=== PATIENT | male | born 1960 | race Caucasian/White ===

== ENCOUNTER 2017-05-07 14:47 | Emergency (ER) | payer MEDICARE, MEDICAID ==
[~2017-05-07 14:47] MED LIST changes: -CYCL10TA29 PO; -HYDR-385 PO; -IBUP200C71 PO
--- NOTE | 2017-05-07 14:52 | ER Report ---
History and Physical Time Seen By MD: 14:52 HPI/ROS CHIEF COMPLAINT: Back pain HISTORY OF PRESENT ILLNESS: 56-year-old male patient presents to emergency room with complaint of back pain. Patient has significant past medical history for MS. Patient states that he was moving a 50 pound bag of pellets for his wood stove. He states that while his hearing that that he developed a sharp pain in the back. He states that that took him to his knees. He states that he was able to get up and sit down in the recliner. He states while he was there the pain seemed to persist and worsen. He denies having any loss of bowel or bladder control. He states that he is not taking any medication for this. He denies having any saddle paresthesia. He states the pain is right in the lower back and Zosyn radiate down the leg. REVIEW OF SYSTEMS: Respiratory: No cough, no dyspnea. Cardiovascular: No chest pain, no palpitations. Gastrointestinal: No vomiting, no abdominal pain. Musculoskeletal: As noted above Allergies: Coded Allergies: No Known Drug Allergies (Verified , 05/07/17) Home Meds Active Scripts Cyclobenzaprine Hcl (CYCLOBENZAPRINE HCL) 10 Mg Tablet, 5-10 MG PO TID Y for MUSCLE SPASMS, #30 TAB Prov:CRICKET RUTLEDGE 05/07/17 Hydrocodone Bit/Acetaminophen (HYDROCODON-ACETAMINOPHEN 5-325) 1 Each Tablet, 1 EACH PO Q4-6H Y for PAIN, #20 TAB Prov:CRICKET RUTLEDGE 05/07/17 Reported Medications Ibuprofen (IBUPROFEN) 200 Mg Capsule, 3 CAP PO QHS, CAPSULE 05/07/17 Ocrelizumab (Ocrevus) 300 Mg/10 Ml Vial, 300 MG IV 11/23/16 Discontinued Scripts Sulfamethoxazole/Trimet 800-160 Mg Tab (BACTRIM DS TABLET) 1 Each Tablet, 1 TAB PO Q12H for 7 Days, #14 TAB Prov:LOREE CAMACHO 11/23/16 Mupirocin Noam 2% Cream (MUPIROCIN 2% CREAM) 15 Gm Cream..g., 0 TP TID for 14 Days, #1 TUBE 1 Refill Prov:LOREE CAMACHO 11/23/16 Past Medical/Surgical History Patient has a past medical history of MS. Patient denies any surgical history. Reviewed Nurses Notes: Yes Hx Smoking: Yes Exposure to Second Hand Smoke?: No Hx Substance Use Disorder: No Hx Alcohol Use: No Constitutional Vital Sign - Last 24 Hours 05/07/17 05/07/17 05/07/17 05/07/17 14:50 14:54 15:00 15:02 Temp 98.2 Pulse 70 71 Resp 16 B/P (MAP) 147/79 147/79 (101) 117/87 (97) Pulse Ox 94 95 O2 Delivery Room Air 05/07/17 05/07/17 05/07/17 05/07/17 15:30 15:32 15:47 15:52 Pulse 65 67 66 B/P (MAP) 120/93 (102) Pulse Ox 96 97 97 05/07/17 05/07/17 16:00 16:32 Pulse 75 B/P (MAP) 120/91 (101) 120/70 (87) Pulse Ox 95 Physical Exam General Appearance: The patient is alert, has no immediate need for airway protection and no current signs of toxicity. Respiratory: Chest is non tender, lungs are clear to auscultation. Cardiac: regular rate and rhythm Gastrointestinal: Abdomen is soft and non tender, no masses, bowel sounds normal. Musculoskeletal: Neck: Neck is supple and non tender. Extremities have full range of motion and are non tender. Patient has good strength with flexion extension of the lower legs. Skin: No rashes or lesions. DIFFERENTIAL DIAGNOSIS: After history and physical exam differential diagnosis was considered for back pain including but not limited to muscular pain, herniated disc, spine fracture, intra-abdominal causes and urinary tract infection. Medical Decision Making EKG/Imaging Imaging Examination: L-SPINE W/O CONTRAST Comparison: None. History: back pain Procedure: Back pain. One of the following dose optimization techniques was utilized in the performance of this exam: Automated exposure control; adjustment of the mA and/ or kV according to the patient's size; or use of an iterative reconstruction technique. Specific details can be referenced in the facility's radiology CT exam operational policy. Findings: 5 lumbar type vertebral bodies. Vertebral body height and alignment is within normal limits. Thoracolumbar, facet, and lumbosacral alignment is maintained. No vertebral body or posterior neural arch fracture. No disc space loss. Mild diffusely bulging disc at L4-L5 results in minimal effacement of the spinal canal and lateral recesses. Moderate aortic atherosclerosis. No abdominal aortic aneurysm. No noncontrast CT findings of acute disease in the visualized abdomen. IMPRESSION: 1. No lumbar spine fracture or malalignment. 2. L4-L5 mild disc bulge. 3. Aortic atherosclerosis. Report Dictated By: Alvarez Hylton MD at 05/07/2017 3:44 PM Report E-Signed By: Alvarez Hylton MD at 05/07/2017 3:50 PM ED Course/Re-evaluation ED Course Patient was admitted to exam room, history and physical were obtained. Differential diagnoses were considered. On examination patient had tenderness to the midline of his back. Due to patient not being able to bear weight and stand I did go ahead and do a CAT scan of the lumbar spine. That showed a bulging disc between L4 and L5. Patient did receive a dose of 30 mg of Toradol and 30 mg of Norflex. Patient states he did have some improvement in pain. He states he had decrease of pain down to a one or 2. I did discuss the findings of the CAT scan with the patient. I believe that he may have caused a disc to bolt by caring the pellets. I discussed with patient that if he is able to get up and walk able to allow him to go home. He was able to get up and walk but had to use a walker. Patient tolerated that well. We'll I spoke with the patient he stated that he did have a walker at home. We will discharge him home with a prescription for pain medication, muscle relaxer. He is to follow-up with Dr. Palmer. He is to call on Wednesday to make an appointment. The patient verbalized understanding and agreement with plan. Decision to Disposition Date: May 07, 2017 Decision to Disposition Time: 16:30 Depart Departure Latest Vital Signs Vital Signs Date Time Temp Pulse Resp B/P (MAP) Pulse Ox O2 Delivery O2 Flow Rate FiO2 05/07/17 16:32 75 120/70 (87) 95 05/07/17 14:50 98.2 16 Room Air Impression: Primary Impression: Bulging disc Additional Impression: Back pain Condition: Improved Disposition: HOME OR SELF-CARE Referrals: MADAI PALMER MD New Scripts Cyclobenzaprine Hcl (CYCLOBENZAPRINE HCL) 10 Mg Tablet 5-10 MG PO TID Y for MUSCLE SPASMS, #30 TAB Prov: CRICKET RUTLEDGE BALA 05/07/17 Hydrocodone Bit/Acetaminophen (HYDROCODON-ACETAMINOPHEN 5-325) 1 Each Tablet 1 EACH PO Q4-6H Y for PAIN, #20 TAB Prov: CRICKET RUTLEDGE BALA 05/07/17 Patient Instructions: Acute Low Back Pain (ED) Additional Instructions: Limit activity by pain. No heavy lifting. I would like that you follow up with Dr. Palmer in the next week. Return to the ER if condition worsens. Follow up with your primary care provider if you need more pain medication before you see Dr. Palmer. Continue with your normal medications. Problem Qualifiers Additional Impression: Back pain Back pain location: low back pain Chronicity: acute Back pain laterality: midline Sciatica presence: without sciatica Qualified Codes: M54.5 - Low back pain CRICKET RUTLEDGE BALA May 07, 2017 14:52
[2017-05-07] MEDS ORDERED: IBUP200C71 PO (14:53)
[2017-05-07] MEDS ORDERED: KETOROLAC 30 MG/ML VIAL IVP ONE (15:00)
[2017-05-07] MEDS ORDERED: ORPHENADRINE 60MG/2ML INJ IVP ONE (15:00)
--- NOTE | 2017-05-07 15:54 | RADIOLOGY IMAGING REPORT ---
FACILITY: [facility] PATIENT NAME: Alvarez Root : 1960 MR: [id number] V: [id number] EXAM DATE: ORDERING PHYSICIAN: CRICKET RUTLEDGE TECHNOLOGIST: [facility] Patient: Alvarez Root : 1960 Visit/Account:[id number] Date of Sevice: 05/07/2017 Examination: L-SPINE W/O CONTRAST Comparison: None. History: back pain Procedure: Back pain. One of the following dose optimization techniques was utilized in the performance of this exam: Autom ated exposure control; adjustment of the mA and/or kV according to the patient's size; or use of an i terative reconstruction technique. Specific details can be referenced in the facility's radiology C T exam operational policy. Findings: 5 lumbar type vertebral bodies. Vertebral body height and alignment is within normal limits . Thoracolumbar, facet, and lumbosacral alignment is maintained. No vertebral body or posterior neura l arch fracture. No disc space loss. Mild diffusely bulging disc at L4-L5 results in minimal effacement of the spinal canal and lateral recesses. Moderate aortic atherosclerosis. No abdominal aortic aneurysm. No noncontrast CT findings of acute di sease in the visualized abdomen. IMPRESSION: 1. No lumbar spine fracture or malalignment. 2. L4-L5 mild disc bulge. 3. Aortic atherosclerosis. Report Dictated By: Alvarez Hylton MD at 05/07/2017 3:44 PM Report E-Signed By: Alvarez Hylton MD at 05/07/2017 3:50 PM WSN:[id number]
[2017-05-07] MEDS ORDERED: HYDR-385 PO (16:27)
[2017-05-07] MEDS ORDERED: CYCL10TA29 PO (16:27)
[2017-05-07 16:32] VITALS: BP 120/70
== END 2017-05-07 16:38 | disposition home or self-care (01) ==
LOC: ER 14:48
DX: M51.26 Other intervertebral disc displacement, lumbar region (principal); X50.0XXA Overexertion from strenuous movement or load, initial encounter
CPT/HCPCS: 72131; 96374; 96375; 99284; J1885; J2360

== ENCOUNTER → 2017-05-07 | Outpatient (CLI) | payer MEDICARE, MEDICAID ==
[~2017-05-07] MED LIST: CYCL10TA29 PO; HYDR-385 PO; IBUP200C71 PO; MUPI15CR2 TP; OCRE300V IV; SULF-198 PO
== END ==
LOC: AMB 14:21
PROVIDERS: ATTEND Nurse Practitioner
DX: M54.5 Low back pain (principal)
CPT/HCPCS: A0425; A0427

== ENCOUNTER → 2017-07-27 | Outpatient (CLI) | payer MEDICARE, MEDICAID ==
[~2017-07-27] MED LIST changes: +CYCL10TA29 PO; +HYDR-385 PO; +IBUP200C71 PO
[2017-07-27 13:25] LABS: PLATELET COUNT, AUTOMATED 282 K/uL (150-450)
== END ==
LOC: LAB 12:39
PROVIDERS: ATTEND Psychiatry & Neurology Neurology
DX: G35 Multiple sclerosis (principal); Z79.899 Other long term (current) drug therapy; E53.8 Deficiency of other specified B group vitamins; E55.9 Vitamin D deficiency, unspecified
CPT/HCPCS: 36415; 82040; 82247; 82306; 82310; 82374; 82435; 82565; 82607; 82947; 84075; 84132; 84155; 84295; 84450; 84460; 84520; 85025; 88184; 88185

== ENCOUNTER → 2017-09-10 | Outpatient (CLI) | payer MEDICARE, MEDICAID ==
[~2017-09-10] MED LIST changes: +GADOBENATE 529MG/1ML 15ML VIAL IVP ONE; +IBUP-136 PO; -IBUP200C71 PO
--- NOTE | 2017-09-10 13:58 | RADIOLOGY IMAGING REPORT ---
FACILITY: [facility] [place] PATIENT NAME: Alvraez Root : 1960 MR: [id number] V: [id number] EXAM DATE: ORDERING PHYSICIAN: SABRA BOLAÑOS TECHNOLOGIST: Location: [facility] Patient: Alvarez Root : 1960 Visit/Account:[id number] Date of Sevice: 09/10/2017 EXAMINATION: MRI Brain without intravenous contrast MRI Brain with intravenous contrast HISTORY: Multiple sclerosis. COMPARISON: 09/02/2016. TECHNIQUE: Multi-planar, multi-sequence brain MRI was performed before and after IV gadolinium. CONTRAST: 12 mL of IV MultiHance FINDINGS: Brain volume: Mild to moderate generalized brain parenchymal volume loss. Sagittal midline structures: Thinning of the corpus callosum. Otherwise negative. Ventricles: Caval septum pellucidum. Otherwise negative. Acute ischemic changes: None. Hemorrhage: None. Masses / edema: None. Enhancement: Negative. [place]-white: Negative. White matter: Stable patchy FLAIR hyperintensity in the bilateral cerebellar white matter and brains tem. Stable patchy and confluent periventricular, deep, and subcortical white matter T2/FLAIR hyperi ntensity. Vessels: Negative. Extra-axial: Negative. Calvarium / scalp: Negative. Skull base: Negative. Visualized sinuses / orbits: Leftward nasal septal deviation. Mild fluid in the left maxillary sinu s. Left mastoid effusion. Visualized upper neck: Negative. IMPRESSION: 1. Stable appearance of the brain compared with 09/02/2016. 2. Mild fluid in the left maxillary sinus may represent acute sinusitis in the appropriate clinical setting. Report Dictated By: David Kline MD at 09/10/2017 1:48 PM Report E-Signed By: David Kline MD at 09/10/2017 1:55 PM WSN:[id number]
== END ==
LOC: MRI 03:29
PROVIDERS: ATTEND Psychiatry & Neurology Neurology
DX: J34.2 Deviated nasal septum (principal); J32.0 Chronic maxillary sinusitis
CPT/HCPCS: 70553; A9577

== ENCOUNTER → 2018-01-26 | Outpatient (CLI) | payer MEDICARE, MEDICAID ==
[~2018-01-26] MED LIST changes: -GADOBENATE 529MG/1ML 15ML VIAL IVP ONE
[2018-01-26 11:21] LABS: PLATELET COUNT, AUTOMATED 301 K/uL (150-450)
== END ==
LOC: LAB 10:54
PROVIDERS: ATTEND Psychiatry & Neurology Neurology
DX: G35 Multiple sclerosis (principal); Z79.899 Other long term (current) drug therapy
CPT/HCPCS: 36415; 82040; 82247; 82310; 82374; 82435; 82565; 82784; 82947; 84075; 84132; 84155; 84295; 84450; 84460; 84520; 85025; 88184; 88185

== ENCOUNTER → 2018-07-29 | Outpatient (CLI) | payer MEDICARE, MEDICAID ==
[2018-07-29 11:47] LABS: PLATELET COUNT, AUTOMATED 343 K/uL (150-450)
== END ==
LOC: LAB 11:20
PROVIDERS: ATTEND Psychiatry & Neurology Neurology
DX: G35 Multiple sclerosis (principal); E55.9 Vitamin D deficiency, unspecified; Z79.899 Other long term (current) drug therapy
CPT/HCPCS: 36415; 82040; 82247; 82306; 82310; 82374; 82435; 82565; 82784; 82947; 84075; 84132; 84155; 84295; 84450; 84460; 84520; 85007; 85027